=== PATIENT | female | born 1990 | race African-American/Black ===

== ENCOUNTER 2021-07-25 21:20 | Inpatient (IN) | payer SELFPAY ==
[2021-07-25] MEDS ORDERED: Nalbuphine 10 MG/1 ML Vial IVPUSH PRN (22:34)
[2021-07-25] MEDS ORDERED: Lidocaine 1% 50 ML MDV INJECT ONE (22:34)
[2021-07-25] MEDS ORDERED: Calcium Carbonate 500 MG Tab.Chew PO PRN (22:34)
[2021-07-25] MEDS ORDERED: Sodium Chloride 0.9% 10 ML Syringe FLUSH PRN (22:34)
[2021-07-25] MEDS ORDERED: Ondansetron 4 MG/2 ML SDV IVPUSH PRN (22:34)
[2021-07-25] MEDS ORDERED: Oxytocin/Lactated Ringers 10 UNIT/1,000 ML BAG IV SCH (22:45)
[2021-07-26] MEDS ORDERED: Bupivacaine 0.25% 10 ML SDV ONE
[2021-07-26] MEDS ORDERED: Oxytocin/Lactated Ringers 10 UNIT/1,000 ML BAG IV SCH (05:15)
[2021-07-26] MEDS: Lactated Ringers 1,000 ML IV SCH ×3 (05:30→11:49)
[2021-07-26] MEDS ORDERED: Bupivacaine/fentaNYL/NS 100 ML Bag EPIDUR PRN (07:12)
[2021-07-26] MEDS ORDERED: ePHEDrine 50 MG/ML SDV IVPUSH PRN (07:12)
[2021-07-26] MEDS ORDERED: fentaNYL 100 MCG/2 ML SDV EPIDUR PRN (07:12)
[2021-07-26] MEDS ORDERED: diphenhydrAMINE 50 MG/ML SDV IVPUSH PRN (07:12)
[2021-07-26] MEDS ORDERED: Witch Hazel Medicated Pads 40/Jar TOP PRN (17:33)
[2021-07-26] MEDS ORDERED: Benzocaine/Menthol 20%-0.5% Spray 78 GM Cannister TOP PRN (17:33)
[2021-07-26] MEDS: Ibuprofen 600 MG Tab PO PRN (22:01)
[2021-07-26] MEDS: Acetaminophen 325 MG Tab PO PRN (23:08)
[2021-07-27] MEDS: Docusate Sodium 100 MG Cap PO PRN (07:43)
[2021-07-27] MEDS: Ibuprofen 600 MG Tab PO PRN ×2 (07:43→14:07)
[2021-07-27] MEDS: Acetaminophen 325 MG Tab PO PRN (19:04)
[2021-07-28] MEDS: Ibuprofen 600 MG Tab PO PRN (04:36)
[2021-07-28] MEDS: Docusate Sodium 100 MG Cap PO PRN (06:26)
== END 2021-07-28 16:24 | disposition home or self-care (01) | DRG 807 ==
LOC: JD.OBCHECK 21:20 → JD.OB 21:27 → JD.OBCHECK 22:49 → OBSVTOIN 07-26 16:07 → JD.OB 07-26 16:08
PROVIDERS: ADMIT Obstetrics & Gynecology; ATTEND Obstetrics & Gynecology
PROC: 0KQM0ZZ Repair Perineum Muscle, Open Approach (ICD-10-PCS; principal; 2021-07-26)
PROC: 10E0XZZ Delivery of Products of Conception, External Approach (ICD-10-PCS; principal; 2021-07-26)
PROC: 10907ZC Drainage of Amniotic Fluid, Therapeutic from Products of Conception, Via Natural or Artificial Opening (ICD-10-PCS; principal; 2021-07-26)
PROC: 3E0R3BZ Introduction of Anesthetic Agent into Spinal Canal, Percutaneous Approach (ICD-10-PCS; principal; 2021-07-26)
DX: O48.0 Post-term pregnancy (principal); Z37.0 Single live birth; Z3A.40 40 weeks gestation of pregnancy; O66.0 Obstructed labor due to shoulder dystocia; O99.214 Obesity complicating childbirth; O70.1 Second degree perineal laceration during delivery
CPT/HCPCS: 01967; 36415; 51701; 51702; 51798; 59025; 59409; 85025; 86592; A9270-GY; J2590; J3010; J3490; J7120